=== PATIENT | female | born 1990 | race Caucasian/White ===

== ENCOUNTER 2016-12-31 11:39 | Inpatient (IN) | payer OTHER ==
[~2016-12-31] VITALS: Ht 152.4 cm; Wt 92.1 kg
[~2016-12-31 11:39] MED LIST: ACET325T51 PO; METH20TA33 PO; birth control pills
[2016-12-31 12:44] LABS: Mean Corpuscular Hemoglobin 28.5 pg (27.0-35.0); Mean Corpuscular Volume 84.6 fL (81-100)
[2016-12-31] MEDS ORDERED: Lactated Ringer's 1,000 ML IV PRN (14:08)
--- NOTE | 2016-12-31 14:08 | PCM.HPOB ---
Subjective Date of Service: Dec 31, 2016 Referring Provider: Admitting Physician: Primary Care Physician: Albert Beal MD Attending Physician: Kristy Mera MD Chief Complaint Elevated HR on exam in clinic, mild preeclampsia History of Present History of Present Illness Patient is a 26 y.o. F PAMELA at 38 weeks 01/12/17 by US presented to [facility] from clinic with elevated FHR 170's, mild preeclampsia with prot/ creatine ratio 0.35. Patient admitted for induction of labor at 38 weeks. Patient has past history of pre-eclampsia in past , prior at term. Blood pressures during have been within normal range, patient experience edema, PIH labs negative for pre-eclampsia, abnormal 3hour GGT 123. At time of examination cervix is closed, high, 50 % effacement station -3. Patient having intermittent contractions, good movement, good variability , category I tracings. Patient denies rupture of membranes, passing bloody show , fever, chills, nausea, vomiting. OB History: (4), Para (2), (1) Obstetrical Complications: Pre-eclampsia (mild), Other ( tachycardia) Past Medical History Obstetrical History: 2 healthy life infants 1 spontaneous history of pre-eclampsia Gynecologic History: No history of STI Pap negative Medical History: ADD myopia Surgical History: Breast reduction surgery 2013 Social History: lives with and 2 children Hx Tobacco Use: No Smoking Status: Never Smoker Hx Alcohol Use: No Hx Substance Use: No Past Family History Family History No family history of DM, cancer Genetic Screening/Counseling Genetic Screening/Counseling: Negative Review of Systems Respiratory: Denies: Cough Genitourinary: Denies: Dysuria Musculoskeletal: Denies: Redness Skin/Breasts: Denies: Bruising, Discharge Skin: Denies: Bruising Neurological: Denies: Confusion, Dizziness Psychologic: Denies: Agitation Endocrine: Reports: Blood Glucose Review (3 hour GGT 124) Hematologic: Denies: Abnormal bleeding, Adenopathy Medications Home medications Nitrofurantoin Hydrocortisone Zofran Omeprazole Ranitidine vitamins Allergy Coded Allergies: acetaminophen (Unverified Adverse Reaction, Severe, FROM HYDROCODONE-PT TAKING DRUG, 03/12/14) hydrocodone (Verified Adverse Reaction, Severe, NV, ITCHING, "VERY SICK", 03/12/14) Exam Vital Signs 95 142/84 Exam FHR 140's Category I tracings 0 dilation 50 % effaced -3 station Constitutional: Well-developed, Well-nourished HEENT: Atraumatic, PERRLA Lungs: Clear to Auscultation, Normal Air Movement Heart: Exam Unremarkable, Regular Rate/Rhythm, Normal S1, Normal S2, No Murmurs /Rubs/Gallops Abdomen: Gravid (consistent with gestational age), Normal bowel sounds Extremities: Pulses Palpable x4 Neurological/Psychiatric: Alert, Oriented X3 Neuro: Grossly Neurologically Intact, Normal DTRs Labs/Diagnostics Labs Hct 35 Hgb 12 A+ RPR non reactive Rubella immune varicella immune HepB neg UA neg GBS neg HIV neg Hep C GGT neg Ultra Sound US EFW 76% PAMELA 01/12/17 CORNEL 10.6 Maternal Blood Type: A Hx Rho(D) Immune Globulin: No Group B Strep Results: Positive Previous with GBS: No Rubella: Immune Additional Information vaccinations up to date OB Intrapartum Assessment/Plan Assessment Patient is a 26 y.o. F PAMELA at 38 weeks 01/12/17 by US presented to [facility] from clinic with elevated FHR 170's, mild preeclampsia with prot/ creatine ratio 0.35. Patient admitted for induction of labor at 38 weeks for tachycardia and mild preeclampsia Intrapartum plan Admit to [facility] for induction of labor Goldman score Cervix not favorable to pitocin, start induction with 25 mg cervidil per protocol Start IV IVF LR 125 mls/hr CBC ordered Tylenol for pain NPO, sips for med allowed Attending Statement The patient was seen and examined together with Dr. Girish Cabrera DO on 2016 and I agree with the history, exam and plan as outlined in the note above. GIRISH CABRERA DO Dec 31, 2016 14:08 Poli Ontiveros MD Jan 04, 2017 08:12
[2016-12-31] MEDS ORDERED: Methylergonovine 0.2 mg/mL Inj IM PRN (14:10)
[2016-12-31] MEDS ORDERED: Carboprost 250 mCg/mL Inj IM PRN (14:10)
[2016-12-31] MEDS ORDERED: diphenhydrAMINE 50 mg Capsule PO PRN (14:10)
[2016-12-31] MEDS ORDERED: Hemorrhage Kit, Post Partum XX ONE (14:10)
[2016-12-31] MEDS ORDERED: Misoprostol 25 mCg/0.25 Tablet VAGINAL SCH (14:10)
[2016-12-31] MEDS ORDERED: Sodium Chloride LOK Flush 10 mL Syringe IVFLUSH PRN (14:10)
[2016-12-31] MEDS ORDERED: Oxytocin 30 Units/500 mL LR 30 UNITS in IV Premix 1 EACH IV PRN (14:10)
[2016-12-31] MEDS ORDERED: Oxytocin 10 Unit/mL Inj IM PRN (14:10)
[2017-01-01] MEDS: fentaNYL-PF 50 mCg/mL 2 mL Inj IVPUSH PRN ×2 (04:37→12:19)
[2017-01-01] MEDS: Ondansetron 2 mg/mL 2 mL Inj IVPUSH PRN ×2 (05:12→12:19)
--- NOTE | 2017-01-01 11:58 | PROG NOTE ---
[address] [address] PROGRESS NOTE PATIENT: JO-ANN RICH : 1990 MR#: [id number] ADMIT: 12/31/2016 JOB ID: [id number] DATE: 01/01/2017 SUBJECTIVE: A 26-year-old female, 4, para 2-0-1-2 at 38 weeks . She was admitted yesterday for induction of labor for preeclampsia without severe feature. Cervidil was given overnight for cervical ripening. She had frequent contractions every 3 minutes. Her cervical examination this morning at 6:00 when the Cervidil was removed was 1, 50, floating head. At that time the plan was to observe and to make further plan after at least 1 hour after the Cervidil was removed. Overnight the patient has no headache, no blurry vision, no epigastric pain. No other discomfort. PHYSICAL EXAMINATION: She is afebrile. Blood pressure mostly in normal range. Cardiac: RRR. No murmur. Pulmonary: Bilaterally clear. Abdomen: Soft. Uterus well relaxed between contractions. Contractions mostly mild. Nontender of the uterus. Extremities: Nontender. Cervical examination 2-3, 50% effaced, posterior, -3 to -4 station. Contractions still every 2-3 minutes. heart tracing category one. ASSESSMENT: A 26-year-old female, 4, para 2-0-1-2 at 38 weeks. Preeclampsia without severe feature. Still not favorable cervix. PLAN: 1. Will continue to monitor symptoms and signs of preeclampsia. At this time no medication or further management needed. 2. Discussed with patient about the cervical finding. Discussed options including cervical ripening balloon or continue to monitor contractions and waiting until the contractions spacing out more than every 3 minutes to give Cytotec. At the time I talked with the patient I think the cervical ripening balloon may help patient better. After discussion the patient would like to get the cervical ripening balloon placed and it was placed without complication or difficulty. The plan is reevaluate in 6-8 hours and possibly start Pitocin at that time. 3. The patient is GBS negative and no antibiotic is needed at this time.
[2017-01-01] MEDS: Lactated Ringer's 1,000 ML IV SCH ×2 (15:49→22:04)
[2017-01-01] MEDS ORDERED: fentaNYL 2 mCg/mL-Bupivicaine 0.125% 100 mL Premix EPIDURAL ONE (22:13)
[2017-01-01] MEDS ORDERED: Lactated Ringer's 1,000 ML IV SCH (23:04)
[2017-01-01] MEDS ORDERED: Lactated Ringer's 500 ML IV ONE (23:04)
--- NOTE | 2017-01-01 23:04 | PCM.HPANE ---
Patient Data Surgeon Admitting Provider:Poli Ontiveros MD Attending Provider:Poli Ontiveros MD Primary Care Physician:Albert Beal MD Other Provider:Juan Manuel Prado Anesthesia Reason for Visit Induction INDUCTION Ht/WT & BMI Body Mass Index Allergies Coded Allergies: acetaminophen (Unverified Adverse Reaction, Severe, FROM HYDROCODONE-PT TAKING DRUG, 03/12/14) hydrocodone (Verified Adverse Reaction, Severe, NV, ITCHING, "VERY SICK", 03/12/14) Past Anesthesia History Anesthesia History: Denies:: Abnormal Airway, Anesthesia Reactions, Difficult Intubation, Fam Anesthesia Reaction, Fam Malignant Hypertherm, Malignant Hyperthermia Diabetes History Hx Diabetes?: No MRSA MRSA: No Medications Reported Medications [ control pills] No Conflict Check Daily 03/13/14 Methylphenidate 20 Mg [id number] Mg PO DAILY 30 Days Ref 0 03/12/14 Acetaminophen 325 Mg [id number] Mg PO Q 4HRS PRN 03/12/14 History History of ENT Problems?: No HEENT History: Denies:: Abnormal Airway Cataracts Difficult Intubation Dysphagia Glaucoma Hearing Problem Sinus Problem TMJ Denture Type: None Teeth Condition: Within Normal Limits Hx of Heart Problems?: No Cardiovascular History: Denies:: AICD Abdominal Aortic Aneurism Atrial Fibrillation Cardiac Surgery Chest Pain Congestive Heart Failure Coronary Artery Disease Edema Heart Murmur Hypertension Irregular Heartbeat Pacemaker Peripheral Vascular Rheumatic Fever Thrombophlebitis Valvular Heart Disease Hx of Respiratory Problem?: No Respiratory History: Denies:: Use of C-PAP Machine Hx Neurologic Problems?: Yes Neurological History: Positive for:: Headaches Hx of GI Problems?: No Hx of Problems?: No HX of Peritoneal Dialysis: No Female Hx: Positive for:: Problems with Breasts? (BILAT MACROMASTIA=CURRENT PROBLEM) Denies:: Currently Skin History: Denies:: History Skin Disorders? Pressure Ulcers Hx Musculoskeletal Problems?: Yes Musculoskeletal History: Denies:: Back Injury (C/OF BACK PAIN R/T MACROMASTIA) Hx of Psycho/Social Problems?: Yes Psycho Social History: Positive for:: Anxiety Hx Surgeries?: No Hx Any Other Health Problems?: No Other History: Positive for:: Hospitalization (CHILDBIRTH) Denies:: Cancer Endocrine Disease Thyroid Disease History Blood Transfusions: Denies:: Blood Transfusions Hx Diabetes: No Hx Alcohol Use: NoHx Substance Use: No Smoking Status: Never Smoker Have You Smoked inLast 12 mo: Yes Stop/Bang Risk Assessment Category Category 1A: Patient has history of documented sleep apnea, and HAS NOT received any narcotic, sedative or anesthesia administration during this stay. Category 1B: Patient has history of documented sleep apnea, and HAS received any narcotic , sedative or anesthesia administration during this stay Category 2: Patient has SUSPECTED Obstructive Sleep Apnea, and HAS received any narcotic , sedative or anesthesia administration during this stay. Category 3: Patient has SUSPECTED Obstructive Sleep Apnea and HAS NOT received narcotic, sedative or anesthesia administration during this stay. Category 4: Outpatient in Procedural Areas with known sleep apnea or who screen positive for High Risk via the STOP/BANG questionnaire. Exam Exam General Appearance: Alert, Oriented X3, Severe Distress (labor pain) HEENT/AIRWAY: MP 2, Neck Movement (3 fbmo) Lungs: Clear to Auscultation, Normal Air Movement Heart: Exam Unremarkable, Regular Rate/Rhythm, Normal S1, Normal S2, No Murmurs /Rubs/Gallops Meds/Labs/Diagnostics Admission Meds Current Medications Dinoprostone (Cervidil Vaginal Insert) 10 mg ONCE ONCE VAGINAL Last administered on 12/31/16t 17:51; Start 12/31/16 at 17:15; Stop 12/31/16 at 17:16; Status DC Labs Test 12/31/16 12:34 12/31/16 14:19 White Blood Count 11.3th/mm3 (3.8-10.1) Red Blood Count 4.03mil/mm3 (3.90-5.20) Hemoglobin 11.5g/dL (12.0-15.6) Hematocrit 34.1% (35.0-46.0) Mean Corpuscular Volume 84.6fL (81-100) Mean Corpuscular Hemoglobin 28.5pg (27.0-35.0) Mean Corpuscular Hemoglobin Concent 33.7% (32.0-37.0) Red Cell Distribution Width 13.4% (12.3-15.4) Platelet Count 151bil/L (150-400) Hematology Comments Urine Random Creatinine 23mg/dL (16-392) Urine Random Total Protein 8mg/dL (0-15) Urine Protein/Creatinine Ratio 0.35 (0-200) Blood Urea Nitrogen 8mg/dL (6-20) Creatinine 0.45mg/dL (0.57-1.00) Uric Acid 5.3mg/dL (2.6-7.2) Aspartate Amino Transf (AST/SGOT) 13U/L (0-50) Alanine Aminotransferase (ALT/SGPT) 9U/L (0-32) Hold Urine Received (Received) Plan Impression Patient chart reviewed, patient interviewed and anesthestic plan with risks, benefits, and alternatives discussed, and informed consent obtained. NPO per Anesth. Guidelines: Yes (L&D guidelines) ASA Physical Status: ASA2 Mod Systemic Disease Anesthetic Plan: Epidural Bene/Risks/Altern/Consents: Yes HP Complete Prior to Induction: Yes Reddy Persaud MD Jan 01, 2017 16:33
[2017-01-01] MEDS ORDERED: Ondansetron 2 mg/mL 2 mL Inj IVPUSH PRN (23:05)
[2017-01-01] MEDS ORDERED: Atropine 1 mg/10 mL (Code) Syringe IVPUSH PRN (23:05)
[2017-01-01] MEDS ORDERED: fentaNYL 2 mCg/mL-Bupiv 0.125% 100 ML EPIDURAL SCH (23:05)
[2017-01-01] MEDS ORDERED: EPHEDrine Sulfate 50 mg/mL Inj IVPUSH PRN (23:05)
[2017-01-02] MEDS ORDERED: Lactated Ringer's 1,000 ML IV SCH (00:29)
[2017-01-02] MEDS ORDERED: Benzocaine (Dermoplast) 20% 60 Gm Spray TOPICAL PRN (00:30)
[2017-01-02] MEDS ORDERED: LANOlin HPA 7 Gm Ointment TOPICAL PRN (00:30)
[2017-01-02] MEDS ORDERED: Oxytocin 30 Units/500 mL LR 30 UNITS in IV Premix 1 EACH IV PRN (00:30)
[2017-01-02] MEDS ORDERED: Witch Hazel-Glycerin Pads TOPICAL PRN (00:30)
[2017-01-02] MEDS ORDERED: Oxytocin 10 Unit/mL Inj IM PRN (00:30)
[2017-01-02] MEDS ORDERED: Methylergonovine 0.2 mg/mL Inj IM PRN (00:30)
[2017-01-02] MEDS ORDERED: Hemorrhage Kit, Post Partum XX ONE (00:30)
[2017-01-02] MEDS ORDERED: Carboprost 250 mCg/mL Inj IM PRN (00:30)
--- NOTE | 2017-01-02 01:18 | OP ---
[address] [address] OPERATIVE REPORT PATIENT: JO-ANN RICH : 1990 MR#: [id number] ADMIT: 12/31/2016 JOB ID: [id number] DATE OF SURGERY: 01/01/2017 SURGEON: Lizbet Cordoba MD PREOPERATIVE DIAGNOSIS(ES): POSTOPERATIVE DIAGNOSIS(ES): DELIVERY NOTE: This is a 26-year-old female. She is now 4 para 3. She was admitted for induction of labor at 38 weeks for preeclampsia. She was placed on Cervidil last night for cervical ripening and this morning, cervical ripening double balloon was placed and the balloon was removed around 3-4 o'clock, and Pitocin started after that. AROM was performed at 9:30 and, after the AROM, the patient progressed. The patient has more pain with contraction. Epidural was placed. She had very severe pain with contraction even with epidural. She was examined and noticed she is fully dilated. She is having involuntary pushing. Then, she was instructed to start push. With every push, there is significant descent of head and the infant delivered at THANG position. The shoulder and chest delivered without difficulty. The infant was placed on the mother's chest, with spontaneous crying and with good tone. Delayed cord clamping performed 1 minute after delivery. Regular cord blood collected. Then, the placenta delivered spontaneously completely and examined with three-vessel cord. The uterus is well contracted with massage and the Pitocin running. The perineum examined, was noticed with a first-degree laceration. This laceration was repaired with 2-0 Vicryl with two [id number] stitches. Hemostasis confirmed after the repair. A straight cath was done and about 200 cc of urine drained. The patient tolerated delivery well. All instrument, needles, laps, and gauzes counted correct twice. EBL during the delivery was about 200 cc. The score of the infant was 9 and 9. The weight was not available at dictation.
--- NOTE | 2017-01-02 06:53 | PCM.ANEP1 ---
Post Anesthesia PACU Phase 1 Assessment Anesthetic Administered: Epidural Level of Alertness: Awake, talking WHITE's with Equal Strength: Yes Pain: No Pain Scale Score: 0 Nausea or Vomiting: No CV Function & Hydration Stable: Yes Airway Device: n/a Oxygen Delivery: Room Air Lungs: Clear to Auscultation, Normal Air Movement Dermatome Level: Full Sensation Summary questionable wether or not the epidural was really functional, but the patient has no post procedure anesthesia issues. Walking, using the bathing, denies a headache or significant back pain. PACU Phase 2 Assessment Complications: No Follow up Care: N/A Patient Instructions Provided: N/A Reddy Persaud MD Jan 02, 2017 06:53
--- NOTE | 2017-01-02 07:26 | PCM.PNOBPP ---
Subjective Date of Service Jan 02, 2017 Subjective A 26-year-old female, 4, para 2-0-1-2 at 38 weeks . She was admitted yesterday for induction of labor for preeclampsia without severe feature. Cervidil was given overnight for cervical ripening. She had frequent contractions every 3 minutes. Her cervical examination this morning at 6:00 when the Cervidil was removed was 1, 50, floating head. At that time the plan was to observe and to make further plan after at least 1 hour after the Cervidil was removed. Patient progressed well to full dilation 01/01/17, decision made to AROM, 01/08. Overnight the patient has no headache, no blurry vision, no epigastric pain. No other discomfort. Group B Strep Results: Positive Rubella: Immune Blood Type: A Labs Laboratory Tests 12/31/16 12:34: White Blood Count 11.3, Red Blood Count 4.03, Hemoglobin 11.5, Hematocrit 34.1, Mean Corpuscular Volume 84.6, Mean Corpuscular Hemoglobin 28.5, Mean Corpuscular Hemoglobin Concent 33.7, Red Cell Distribution Width 13.4, Platelet Count 151, Hematology Comments Exam Vital Signs Vital Signs Vital Signs Date Time Temp Pulse Resp B/P Pulse Ox O2 Delivery O2 Flow Rate FiO2 01/02/17 06:53 Room Air Vital Signs: VS reviewed, stable Exam Abdomen: Uterus is Extremities: No cords, Normal pulses, No tenderness/swelling Lungs: Clear to Auscultation, Clear to Percussion Heart: Regular Rate/Rhythm, Normal S1, Normal S2 General: Alert, Oriented X3, Cooperative OB Post Assessment/Plan Assessment A 26-year-old female, 4, para 2-0-1-2, AROM and at 38 weeks. Admitted for induction due to Preeclampsia without severe feature. Plan: Continue to monitor IVF LR 125mls/hr maintenance Advance diet as tolerated Ibuprofen 800 mg for pain Hydrocodone 5-325 mg for pain Colace 300 mg BID FeSO4 QD Repeat CBC,CMP, prot/creatine ration in AM Goal BP <150/90 Attending Statement The patient was seen and examined together with Dr. Girish Orr DO on 2016 and I agree with the history, exam and plan as outlined in the note above. GIRISH ORR DO Jan 02, 2017 07:26 Poli Ontiveros MD Jan 04, 2017 08:13
--- NOTE | 2017-01-02 09:11 | PCM.DC.OB ---
Obstetrical Discharge Summary Date of Service Jan 02, 2017 Date of hospital admission Dec 31, 2016 at 14:04 Date of Discharge: Jan 02, 2017 Providers Admitting Physician: Poli Ontiveros MD Primary Care Physician: Albert Beal MD Attending Physician: Poli Ontiveros MD Diagnosis at Time of Discharge s/p Problems: Brief History and Physical: Patient is a 26 y.o. F PAMELA at 38 weeks 01/12/17 by US presented to [facility] from [facility] with elevated FHR 170's, mild preeclampsia with prot/ creatine ratio 0.35. Patient admitted for induction of labor at 38 weeks. Patient has past history of pre-eclampsia in past , prior at term. Blood pressures during have been within normal range, patient experience edema, PIH labs negative for pre-eclampsia, abnormal 3hour GGT 123. At time of examination cervix is closed, high, 50 % effacement station -3. Patient having intermittent contractions, good movement, good variability , category I tracings. Patient denies rupture of membranes, passing bloody show , fever, chills, nausea, vomiting. Patient progressed well overnight 01/01/17 and delivered late 2350 via without complication. [facility] patient is doing well, ambulating on own, voiding without difficulty, appetite good, passing gas, pain under control, light lochia. Exam Constitutional: Well-developed, Well-nourished HEENT: Atraumatic, PERRLA Lungs: Clear to Auscultation, Normal Air Movement Heart: Exam Unremarkable, Regular Rate/Rhythm, Normal S1, Normal S2, No Murmurs /Rubs/Gallops Abdomen: fundus firm, appropriately tender, Normal bowel sounds Extremities: Pulses Palpable x4 Neurological/Psychiatric: Alert, Oriented X3 Neuro: Grossly Neurologically Intact, Normal DTRs Hospital Course: Patient is a 26 y.o. F PAMELA at 38 weeks 01/12/17 by US presented to [facility] from [facility] with elevated FHR 170's, mild preeclampsia with prot/ creatine ratio 0.35. Patient admitted for induction of labor at 38 weeks. Patient has past history of pre-eclampsia in past , prior at term. Blood pressures during have been within normal range, patient experience edema, PIH labs negative for pre-eclampsia, abnormal 3hour GGT 123. At time of examination cervix is closed, high, 50 % effacement station -3. Patient having intermittent contractions, good movement, good variability , category I tracings. Patient denies rupture of membranes, passing bloody show , fever, chills, nausea, vomiting. Patient progressed well overnight 01/01/17 and delivered late 2350 via without complication. [place] patient is doing well, ambulating on own, voiding without difficulty, appetite good, passing gas, pain under control, light lochia. ([ control pills]) DAILY (Reported) ([Benzocaine]) 1 SPRAY/GM SPRAY 1 SPRAY TOPICAL PRN PRN PRN for perineal pain Prescribed by: MOHINDER ORR DO ([Lanolin]) 2 APPLIC/GM OINT 1 APPLIC TOPICAL PRN PRN PRN apply to nipples Prescribed by: MOHINDER ORR DO Acetaminophen (Acetaminophen) 325 Mg Tablet 325-650 MG PO Q 4HRS PRN (Reported) Docusate Sodium (Colace) 100 Mg Capsule 100 MG PO DAILY Prescribed by: MOHINDER ORR DO Ferrous Sulfate (Feosol) 325 Mg Tablet 325 MG PO DAILY Prescribed by: MOHINDER ORR DO Ibuprofen (Ibuprofen) 800 Mg Tablet 800 MG PO Q6H PRN PRN For Pain Prescribed by: MOHINDER ORR DO Methylphenidate (Methylphenidate) 20 Mg Tablet 20 MG PO DAILY (Reported) Ondansetron PF (Ondansetron PF) 4 Mg/2 Ml Vial 4-8 MG IVPUSH Q6H PRN PRN For Nausea/Vomiting Prescribed by: MOHINDER ORR DO Witch Hiral/Glycerin (A.e.r Pads) 12 Towelette/Pkg Towelette 1 PAD TOPICAL PRN PRN PRN for perineal pain Prescribed by: MOHINDER ORR DO Discharge Medications: See discharge instructions Disposition DC to boarder status then home Follow-up plan Follow up in 2 weeks and 6 weeks at clinic If you experience depression, thoughts of suicide, self harm, harming other, call our office and seek emergency medical care Plan for contraception: receiving vasectomy Discharge Diet: No restrictions Discharge Activity-General: Pelvic Rest for 6 weeks, Pelvic Rest, Try not to overdue, Ice incision 3-5 time/day for 20min, No lifting >15 pounds for 2 weeks Patient instructions Colase 100 mg twice daily Iron supplement once daily Ibuprofen 800 mg by mouth for pain Hydrocodone 5-325 mg 1-2 tab every 6-8 hours by mouth for breakthrough pain Follow up in 2 weeks and 6 weeks at clinic If you experience depression, thoughts of suicide, self harm, harming other, call our office and seek emergency medical care MOHINDER ORR DO Jan 02, 2017 09:11
[2017-01-02] MEDS ORDERED: Lanolin TOPICAL (09:34)
[2017-01-02] MEDS ORDERED: FERR-74 PO (09:34)
[2017-01-02] MEDS ORDERED: TUCPAD TOPICAL (09:34)
[2017-01-02] MEDS ORDERED: Benzocaine TOPICAL (09:34)
[2017-01-02] MEDS ORDERED: IBUP800T28 PO (09:34)
[2017-01-02] MEDS ORDERED: ONDA4VIA27 IVPUSH (09:34)
[2017-01-02] MEDS ORDERED: DOCU-41 PO (09:34)
[2017-01-02 11:00] LABS: BASOPHILS % (AUTO) 0.1 % (0-3); EOSINOPHILS % (AUTO) 0.1 % (0-5); Mean Corpuscular Hemoglobin 28.3 pg (27.0-35.0); Mean Corpuscular Volume 85.3 fL (81-100); Platelet Count 145 bil/L (150-400)
[2017-01-02 22:19] VITALS: BP 121/86; PULSE 89; RESP 16
== END 2017-01-02 23:39 | disposition home or self-care (01) | DRG 775 ==
LOC: FBCO 11:39 → FBC 14:04
PROVIDERS: ADMIT Obstetrics & Gynecology; ATTEND Obstetrics & Gynecology
PROC: 3E033VJ Introduction of Other Hormone into Peripheral Vein, Percutaneous Approach (ICD-10-PCS; 2016-12-31)
PROC: 10E0XZZ Delivery of Products of Conception, External Approach (ICD-10-PCS; principal; 2017-01-01)
PROC: 0HQ9XZZ Repair Perineum Skin, External Approach (ICD-10-PCS; 2017-01-01)
PROC: 10907ZC Drainage of Amniotic Fluid, Therapeutic from Products of Conception, Via Natural or Artificial Opening (ICD-10-PCS; 2017-01-01)
DX: O14.04 Mild to moderate pre-eclampsia, complicating childbirth (principal); O76 Abnormality in fetal heart rate and rhythm complicating labor and delivery; O70.0 First degree perineal laceration during delivery; Z3A.38 38 weeks gestation of pregnancy; Z37.0 Single live birth